=== PATIENT | male | born 1955 | race Caucasian/White ===

== ENCOUNTER 2019-10-20 13:39 | Outpatient (CLI) | payer BC, SELFPAY ==
--- NOTE | ~2019-10-20 | XR_ITS ---
EXAMINATION: XR lg joint inject/asp w image DATE: 10/20/2019 14:23 INDICATION: Right hip primary osteoarthritis. TECHNIQUE: A time-out was performed to verify the patient's name, date of , and procedure to b e performed. The procedure including the risks, benefits, and alternatives was discussed with the pat ient. Risks discussed included bleeding and infection. The patient understood the risks and agreed to proceed. The skin overlying the right hip joint was prepped and draped in usual sterile fashion. A nesthetic was administered with 1% lidocaine subcutaneously. A 22 G needle was advanced under fluoro scopic guidance into the joint. Injection of 1 mL of Omnipaque 240 confirmed intra-articular positio n of the needle. Subsequently, injectate consisting of 3 mL 1% lidocaine and 1 mL 80 mg/mL Depo-Medr ol was instilled. The needle was removed and the entry site was cleaned and dressed. There were no immediate complications. Fluoroscopy exposure time was 0.0 minutes. The total number of images was 1. FINDINGS: Real-time fluoroscopy demonstrates the needle in the right hip joint. Patient's pain prior to procedure:9/10. Patient's pain following the procedure: 0/10. IMPRESSION: 1. Right hip joint injection of local anesthetic and steroid with decrease in the patient's presentin g pain. Reviewed, dictated and finalized at location A. IMPRESSION: 1. Right hip joint injection of local anesthetic and steroid with decrease in t he patient's presenting pain.
== END 2019-10-20 13:40 | disposition home or self-care (01) ==
PROVIDERS: PCP Internal Medicine
DX: M16.11 Unilateral primary osteoarthritis, right hip (principal)
CPT/HCPCS: 20610; 77002; J1040; Q9966

== ENCOUNTER 2020-02-16 13:56 | Outpatient (RCR) | payer BC, SELFPAY ==
--- NOTE | 2020-02-16 14:36 | PTOPEVAL ---
Thank you for referring Abhijeet Patel to [facility].? The patient is scheduled to be seen for therapy? __2__x/week for 8 visits. Please review, sign, date and return this plan of care NONI. I agree with and certify that the following plan of care is medically necessary. Referring Physician Date Admitting Provider: Attending Provider: Donal Corado, MD Referring Provider: *PT Outpatient Evaluation Start: 02/16/20 14:10 Freq: Status: Active Protocol: Document 02/16/20 14:10 CHAZ (Rec: 02/16/20 14:35 CHAZ [id number]) Therapy Assessment Status Assessment Status Assessment Status Evaluation Evaluation Information Problem Diagnosis right CHELSY, anterior approach Onset 01/22/20 Subjective Information Pt. reports that he had hip Query Text:As Reported By Patient/ replacment on 01/22/20. He Family states that he returned home the next day. Immediate pain relief was noted. He states that he still notes weakness after several weeks of HH therapy. He states he is no longer using pain medication. 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 Pain Assessment Timing of Pain Assessment Timing of Pain Assessment Pre-Treatment Pain Scale Pain Scale Used Numeric (1 - 10) Self Report Pain Assessment Right Hip(s) Reported Pain Level 0 Greatest Pain Intensity 0 Pain Score Pain Score 0: Self Report Lower Extremity Range of Motion General Lower Extremity Range of Motion Gross Lower Extremity Range of Motion right hip flexion 95 degree Comments Lower Extremity Muscle Strength Testing General Lower Extremity Strength Gross Lower Extremity Strength right hip flexion 4-/5 left hip flexion 5/5 right hip abduction 3+/5 left hip abduction 4+/5 bilateral knee flexion 5/5 bilateral knee extension 5/5 bilateral ankle dorsiflexion 5 /5 Gait Assessment Gait Assessment Additional Ambulation Comments Pt. ambulates over level surface with slight right trendelenburg demonstrating slightly decreased stance time on the right. General Exercise General Exercises Exercise Description
== END 2020-03-11 10:32 | disposition home or self-care (01) ==
LOC: CHSPT 13:56
PROVIDERS: PCP Internal Medicine; Visit Provider Orthopaedic Surgery
DX: M25.551 Pain in right hip (principal); Z96.641 Presence of right artificial hip joint
CPT/HCPCS: 97110; 97161; 97530

== ENCOUNTER 2020-10-23 01:07 | Emergency (ER) | payer BC, SELFPAY ==
--- NOTE | ~2020-10-23 | CT_ITS ---
EXAMINATION: CT abdomen pelvis wo con DATE: 10/23/2020 02:40 INDICATION: Right flank pain and hematuria TECHNIQUE: Computed tomography (CT) of the abdomen and pelvis was performed without intravenous contr ast. The dose-length product (DLP) was 1676.31 mGy-cm. Automated exposure control and iterative recon struction technique were employed. COMPARISON: 11/03/2011 FINDINGS: Minimal dependent atelectasis is present in the lung bases. The heart size is normal. The l iver, spleen, pancreas, gallbladder and adrenal glands are normal. There is a 5 mm stone of the dista l right ureter which causes mild right hydroureteronephrosis. Nonobstructing stones of the right kidn ey measure up to 5 mm. Nonobstructing stones of the left kidney measure up to 6 mm. There is a 3.6 cm cyst of the left kidney. No pathologically enlarged abdominal or pelvic lymph nodes are identified. There is no free intraperitoneal gas or evidence of bowel obstruction. There are changes of right hip arthroplasty. There is moderate lumbar spondylosis. IMPRESSION: 1. 5 mm stone of the distal right ureter causing mild right hydroureteronephrosis. Bilateral nonobstr ucting nephrolithiasis. Reviewed, dictated and finalized at location A. IMPRESSION: 1. 5 mm stone of the distal right ureter causing mild right hydroureteronephros is. Bilateral nonobstructing nephrolithiasis.
[2020-10-23 01:12] VITALS: BP 150/78; PULSE 90; RESP 20; TEMP 36.6; O2SAT 98
--- NOTE | 2020-10-23 01:14 | ED.MALEGU ---
HPI - Male Genitourinary General Chief complaint: Abdominal Pain Stated complaint: pain Time Seen by Provider: 10/23/20 01:14 Source: patient Mode of arrival: ambulatory Limitations: no limitations History of Present Illness HPI Narrative: 65-year-old man with a history kidney stones comes in today complaining of right flank pain that started approximately 3 hours ago. Patient states the pain waxes and wanes and has had 1 episode of vomiting. He denies fever, chills, diarrhea, chest pain, shortness of breath. he states he had kidney stones of years ago and they would not pass on his own so had to have a procedure. Complaint: other (Flank pain) Onset (ago): hour(s) (3) Duration: other (Waxes and wanes) Location: right flank Severity: severe Quality: sharp Relieving factors: none Exacerbating factors: none Associated symptoms: Reports nausea/vomiting Related Data Allergies Allergy/AdvReac Type Severity Reaction Status Date / Time No Known Allergies Allergy Unverified 06/18/19 13:06 Review of Systems Review of Systems: All systems reviewed & are unremarkable except as noted in HPI and below Constitutional: Constitutional: Denies chills and Denies fever(s) ENT: Denies nasal congestion and Denies sore throat Cardiovascular: Cardiovascular: Denies chest pain and Denies radiating jaw, neck or arm pain Respiratory: Respiratory: Denies cough and Denies dyspnea Gastrointestinal: Gastrointestinal: Reports as per HPI Genitourinary: Genitourinary: Denies hematuria, Denies dysuria and Denies urinary frequency Musculoskeletal: Musculoskeletal: Denies back pain, Denies arthralgias and Denies joint swelling Integumentary/Breasts: Skin/Breast: Denies pruritus, Denies erythema and Denies rash Neurologic: Denies vertigo, Denies dizziness and Denies syncope Hematologic/Lymphatic: Hematologic/Lymphatic: Denies no additional hematologic/lymphatic complaints and Denies easy bleeding Allergic/Immunologic: Allergic/Immunologic: Denies lip swelling and Denies tongue swelling PMFSH Past Medical History Medical History (Updated 10/23/20 @ 03:03 by Parker Ribeiro MD) Urolithiasis Surgical History Surgical History (Updated 10/23/20 @ 01:22 by Parker Ribeiro MD) History of appendectomy History of hip replacement Social History Social History (Updated 10/23/20 @ 01:22 by Parker Ribeiro MD) Smoking status: Current every day smoker Substance use: never Living arrangements: with family Gender identity (if verbalized by the patient): Male Exam Const: General: alert Nutritional Appearance: obese Orientation/consciousness: patient oriented x3 Limitations: altered mental status Other: moderate acute distress. HENMT: Head: normal to inspection Mouth: Yes moist mucous membranes Eyes: Conjunctivae: conjunctivae normal Pupils: Equal, round and reactive pupils present EOM: EOMs intact bilaterally Resp: Effort & Inspection: normal respiratory effort and not labored Auscultation: clear to auscultation bilaterally, no rales, no rhonchi and no wheezes Cardio: Rate: regular rate Rhythm: regular rhythm Heart sounds: no murmurs GI: GI Palp: Yes Soft to palpation, No Tenderness to palpation present (GI) and No Guarding due to palpation present (GI) Skin: General skin exam: normal color, no jaundice and no pallor Rashes: no rashes Neuro: General: patient oriented x3, moves all extremities, no meningeal signs and no focal motor deficits Cranial nerves: Yes Nystagmus not present Speech: normal speech Gait exam (Neuro): Normal gait present Extrem: General: normal to inspection and no clubbing, cyanosis or edema Psych: Appearance: grossly normal and well kempt Mental Status: mental status grossly normal Affect: normal affect Attitude: cooperative Thought content: Yes Normal thought content present Course Vital Signs Vital signs: Vital Signs Temperature 36.6 C 10/23/20 01:12 Pulse Rate 90
[2020-10-23] MEDS: ONDANSETRON INJ 4 MG/2 ML VIAL IV PUSH (01:16)
[2020-10-23] MEDS: SODIUM CHLORIDE 0.9% IV 1,000 ML 999 ML IV CONT ×2 (01:17→02:07)
[2020-10-23] MEDS: HYDROmorphone HCL INJ (*CRX) 2 MG/ML VIAL 0.5 MG IV PUSH (01:17)
[2020-10-23 01:38] LABS: Basophils Absolute Auto 0.03 K/mm3 (0.00-0.10); Basophils Percent Auto 0.4 % (0.0-1.0); Eosinophils Absolute Auto 0.12 K/mm3 (0.02-0.50); Eosinophils Percent Auto 1.7 % (1.0-6.0); Hematocrit 42.2 % (40.0-54.0); Hemoglobin 14.2 g/dL (14.0-18.0); Immature Granulocyte Absolute 0.02 K/mm3 (0.00-0.00); Immature Granulocyte Percent A 0.3 % (0.0-0.0); Lymphocytes Absolute Auto 2.32 K/mm3 (1.10-4.50); Lymphocytes Percent Auto 31.9 % (18.0-42.0); Mean Corpuscular HGB Conc 33.6 g/dL (32.0-36.0); Mean Corpuscular Hemoglobin 30.7 pg (27.0-31.0); Mean Corpuscular Volume 91.3 fL (78.0-102.0); Mean Platelet Volume 9.3 fl (8.7-11.0); Monocytes Absolute Auto 0.69 K/mm3 (0.10-0.90); Monocytes Percent Auto 9.5 % (2.0-11.0); Neutrophils Absolute Auto 4.1 K/mm3 (1.7-7.2); Neutrophils Percent Auto 56.2 % (50.0-70.0); Platelet Count Result 184 K/mm3 (150-420); Red Blood Count 4.62 M/mm3 (4.70-6.10); Red Cell Distribution Width 13.3 % (11.6-14.4); White Blood Count 7.3 K/mm3 (4.8-10.8)
[2020-10-23 01:46] LABS: Alanine Aminotransferase 24 U/L (16-63); Albumin Level 3.7 g/dL (3.4-5.0); Alkaline Phosphatase 75 U/L (46-116); Anion Gap 12 mmol/L (8-16); Aspartate Amino Transferase 14 U/L (15-37); Bilirubin,Total 0.4 mg/dL (0.00-1.00); Blood Urea Nitrogen 23 mg/dL (7-18); Calcium 8.8 mg/dL (8.5-10.1); Carbon Dioxide 26 mmol/L (21-32); Chloride 104 mmol/L (98-108); Estimated CRCL calculation 70 ml/min; Estimated Glomerular Filt Rate > 60; Glucose 124 mg/dL (70-99); Osmolality Calculated 298 mOsm/kg (285-295); Potassium 3.2 mmol/L (3.5-5.1); Sodium 142 mmol/L (136-145); Total Protein 6.6 g/dL (6.4-8.2)
[2020-10-23 01:47] LABS: Lipase 117 U/L (73-393)
[2020-10-23 02:05] LABS: Add Urine Microscopic? YES; Bilirubin Urine Negative (Negative); Blood Urine 3+ (Negative); Color Urine Yellow (Yellow); Glucose Urine UA Negative (Negative); Ketones Urine Negative (Negative); Leukocyte Esterase Ur Negative LEU/UL (Negative); Nitrate Urine Negative (Negative); Protein Urine 1+ (Negative); Specific Grav Ur >= 1.030 (1.010-1.020); Urobilinogen Urine 0.2 mg/dL (0.2-1.0); pH Urine 5.5 (5.0-8.0)
[2020-10-23] MEDS: KETOROLAC 30 MG/ML VIAL (*BKC) IV PUSH (02:06)
[2020-10-23 02:07] VITALS: BP 140/70; PULSE 80; RESP 20
[2020-10-23] MEDS: POTASSIUM CHLORIDE 20 MEQ TABLET 40 MEQ PO (02:07)
[2020-10-23 02:12] LABS: Appearance Urine Cloudy (Clear); Bacteria Urine Trace /hpf; Mucus Urine Heavy /lpf; RBC Urine >75 /hpf (0-2); Squamous Epithelial Cell Urine None seen /hpf (Few); WBC Urine None seen /hpf (0-3)
[2020-10-23 03:28] VITALS: BP 138/88; PULSE 80; RESP 18; TEMP 36.8; O2SAT 98
--- NOTE | 2020-10-23 03:58 | PC.NURSE ---
EDUCATED ON MEDICATIONS, AND URINE STRAIN & STONE COLLECTION
== END 2020-10-23 03:58 | disposition home or self-care (01) ==
PROVIDERS: Emergency Provider Emergency Medicine
DX: N28.1 Cyst of kidney, acquired (principal); N13.2 Hydronephrosis with renal and ureteral calculous obstruction
CPT/HCPCS: 36415; 74176; 80053; 81001; 83690; 85025; 87086; 87088; 96361; 96374; 96375; 99283; 99284; A9270; J1170; J1885; J2405; J7030

== ENCOUNTER 2020-12-31 07:20 | Outpatient (CLI) | payer BC, SELFPAY ==
[2020-12-31 07:39] LABS: Basophils Absolute Auto 0.04 K/mm3 (0.00-0.10); Basophils Percent Auto 0.7 % (0.0-1.0); Eosinophils Absolute Auto 0.18 K/mm3 (0.02-0.50); Eosinophils Percent Auto 3.1 % (1.0-6.0); Hematocrit 43.6 % (40.0-54.0); Hemoglobin 14.3 g/dL (14.0-18.0); Immature Granulocyte Absolute 0.01 K/mm3 (0.00-0.00); Immature Granulocyte Percent A 0.2 % (0.0-0.0); Lymphocytes Absolute Auto 1.72 K/mm3 (1.10-4.50); Lymphocytes Percent Auto 29.6 % (18.0-42.0); Mean Corpuscular HGB Conc 32.8 g/dL (32.0-36.0); Mean Corpuscular Hemoglobin 30.6 pg (27.0-31.0); Mean Corpuscular Volume 93.2 fL (78.0-102.0); Mean Platelet Volume 8.9 fl (8.7-11.0); Monocytes Absolute Auto 0.65 K/mm3 (0.10-0.90); Monocytes Percent Auto 11.2 % (2.0-11.0); Neutrophils Absolute Auto 3.2 K/mm3 (1.7-7.2); Neutrophils Percent Auto 55.2 % (50.0-70.0); Platelet Count Result 195 K/mm3 (150-420); Red Blood Count 4.68 M/mm3 (4.70-6.10); Red Cell Distribution Width 13.5 % (11.6-14.4); White Blood Count 5.8 K/mm3 (4.8-10.8)
[2020-12-31 07:43] LABS: Add Urine Microscopic? YES; Appearance Urine Clear (Clear); Bilirubin Urine Negative (Negative); Blood Urine 1+ (Negative); Color Urine Yellow (Yellow); Glucose Urine UA Negative (Negative); Ketones Urine Negative (Negative); Leukocyte Esterase Ur Negative (Negative); Nitrate Urine Negative (Negative); Protein Urine Negative (Negative); Specific Grav Ur >= 1.030 (1.010-1.020); Urobilinogen Urine 0.2 mg/dL (0.2-1.0)
[2020-12-31 08:01] LABS: RBC Urine 0-2 /hpf (0-2); WBC Urine None seen /hpf (0-3)
[2020-12-31 08:02] LABS: Bacteria Urine Trace /hpf; Mucus Urine Moderate /lpf
[2020-12-31 10:26] LABS: Alanine Aminotransferase 37 U/L (16-63); Albumin Level 3.9 g/dL (3.4-5.0); Alkaline Phosphatase 79 U/L (46-116); Anion Gap 11 mmol/L (8-16); Aspartate Amino Transferase 19 U/L (15-37); Bilirubin,Total 0.3 mg/dL (0.00-1.00); Blood Urea Nitrogen 16 mg/dL (7-18); Calcium 8.5 mg/dL (8.5-10.1); Carbon Dioxide 26 mmol/L (21-32); Chloride 109 mmol/L (98-108); Cholesterol 138 mg/dL (0-200); Estimated Glomerular Filt Rate > 60; Glucose 102 mg/dL (70-99); HDL Direct 37 mg/dL (40-60); LDL Cholesterol Calculated 92 mg/dL (<130); Osmolality Calculated 303 mOsm/kg (285-295); Sodium 146 mmol/L (136-145); Total Protein 6.6 g/dL (6.4-8.2); Triglycerides 47 mg/dL (0-150); Uric Acid 5.4 mg/dL (3.5-7.2)
== END 2020-12-31 07:21 | disposition home or self-care (01) ==
LOC: CHSLAB 07:23
PROVIDERS: PCP Internal Medicine; Visit Provider Internal Medicine
DX: Z00.00 Encounter for general adult medical examination without abnormal findings (principal); I10 Essential (primary) hypertension; N20.0 Calculus of kidney; Z12.5 Encounter for screening for malignant neoplasm of prostate
CPT/HCPCS: 36415; 80053; 80061; 81001; 84153; 84550; 85025; G0103

== ENCOUNTER 2023-02-21 16:50 | Emergency (ER) | payer OTHER, MEDICARE, BC, SELFPAY ==
[2023-02-21 16:53] VITALS: BP 124/85; PULSE 73; RESP 20; TEMP 36.7; O2SAT 96
--- NOTE | 2023-02-21 16:59 | ED.WOUNDLAC ---
HPI - Wound/Laceration General Chief Complaint: Wound/Laceration Stated Complaint: Laceration on head Time Seen by Provider: 02/21/23 16:59 Source: patient Mode of arrival: ambulatory Limitations: no limitations History of Present Illness HPI narrative: 67-year-old male with a history of hypertension, BPH presents to the ER -- after a scalp laceration measuring 3 cm. The patient lacerated his scalp with a sharp object while trying to get up into his tractor. No other injuries noted. No head injury. No loss of consciousness/vomiting. Patient is up-to-date on his tetanus vaccination. Onset (ago): hour(s) ( 4 hours ago) Location: scalp Place: work Patient tetanus UTD: Yes Context: accidental Associated symptoms: none Related Data Home Medications Medication Instructions Recorded Confirmed amlodipine 5 mg tablet 5 mg PO DAILY 02/21/23 02/21/23 Allergies Allergy/AdvReac Type Severity Reaction Status Date / Time No Known Allergies Allergy Unverified 02/21/23 17:02 Review of Systems Review of Systems: All systems reviewed & are unremarkable except as noted in HPI and below Constitutional: Constitutional: Reports as per HPI and Reports no additional constitutional complaints Eyes: Eyes: Reports as per HPI and Reports no additional eye complaints ENT: Reports system reviewed and no additional complaints, except as documented and Reports as per HPI Cardiovascular: Cardiovascular: Reports as per HPI and Reports no additional cardiovascular complaints Respiratory: Respiratory: Reports as per HPI and Reports no additional respiratory complaints Gastrointestinal: Gastrointestinal: Reports as per HPI and Reports no additional gastrointestinal complaints Genitourinary: Genitourinary: Reports no additional male genitourinary complaints and Reports as per HPI Musculoskeletal: Musculoskeletal: Reports no additional musculoskeletal complaints and Reports as per HPI Integumentary/Breasts: Skin/Breast: Reports system reviewed and no additional complaints, except as docu Comments: 3 cm scalp laceration on his occiput. Neurologic: Reports system reviewed and no additional complaints, except as documented and Reports as per HPI Psychiatric: Psychiatric: Reports no additional psychiatric complaints and Reports as per HPI Endocrine: Endocrine: Reports no additional endocrine complaints and Reports as per HPI Hematologic/Lymphatic: Hematologic/Lymphatic: Reports no additional hematologic/lymphatic complaints and Reports as per HPI Allergic/Immunologic: Allergic/Immunologic: Reports no additional allergic/immunologic complaints and Reports as per HPI [facility] Past Medical History Medical History Urolithiasis Surgical History Surgical History History of appendectomy History of hip replacement Social History Social History Smoking status: Current every day smoker Substance use: never Living arrangements: with family Gender identity (if verbalized by the patient): Male Exam Const: General: healthy appearing and no acute distress Nutritional Appearance: well nourished Orientation/consciousness: patient oriented x3 Limitations: no limitations HENMT: Head: normal to inspection Ears: external ears normal Face/Nose/Sinus: Normal external nose present Face and sinus: normal facial exam Mouth: Yes Normal oral and palatal mucosa present Throat: posterior oropharynx normal Eyes: Conjunctivae: conjunctivae normal Pupils: Equal, round and reactive pupils present EOM: EOMs intact bilaterally Direct Ophthalmoscopy: no photophobia Neck: Neck: normal visual inspection and no lymphadenopathy Chest: Chest palpation & inspection: normal inspection of the chest Resp: Effort & Inspection: normal respiratory effort Auscultation: clear to auscult
[2023-02-21 17:20] VITALS: BP 128/80; PULSE 76; RESP 20; O2SAT 98
--- NOTE | 2023-02-21 17:41 | PC.NURSE ---
On 02/21/23, the student, [wu amaya ], provided care and completed [facility] documentation on this patient. I have reviewed the student's documentation and agree with the findings.
== END 2023-02-21 17:25 | disposition home or self-care (01) ==
PROVIDERS: Emergency Provider Internal Medicine Critical Care Medicine; PCP Internal Medicine
DX: S01.01XA Laceration without foreign body of scalp, initial encounter (principal); I10 Essential (primary) hypertension; F17.200 Nicotine dependence, unspecified, uncomplicated; Z79.899 Other long term (current) drug therapy; W26.8XXA Contact with other sharp object(s), not elsewhere classified, initial encounter; Y92.818 Other transport vehicle as the place of occurrence of the external cause
CPT/HCPCS: 12002; 99282

== ENCOUNTER 2023-05-21 16:25 | Outpatient (CLI) | payer MEDICARE, BC, SELFPAY ==
--- NOTE | ~2023-05-21 | XR_ITS ---
XR heel LT min 2V DATE: 05/21/2023 16:46 INDICATION: Left heel pain for one month TECHNIQUE: Axial and lateral views COMPARISON: None FINDINGS: There is prominent plantar calcaneal enthesopathy. No associated erosive change or periost eal reaction. No fracture or bone destruction. IMPRESSION: Prominent plantar calcaneal enthesopathy Reviewed, dictated and finalized at location B. E INFECTION CONTROL
== END 2023-05-21 16:26 | disposition home or self-care (01) ==
LOC: CHSIMG 16:29
PROVIDERS: PCP Internal Medicine; Visit Provider Internal Medicine
DX: M79.672 Pain in left foot (principal); M77.32 Calcaneal spur, left foot
CPT/HCPCS: 73650

== ENCOUNTER 2023-09-15 04:57 | Emergency (ER) | payer MEDICARE, BC, SELFPAY ==
--- NOTE | ~2023-09-15 | CT_ITS ---
EXAMINATION: CT abdomen pelvis w con DATE: 09/15/2023 06:09 INDICATION: Epigastric and central abdominal pain, nausea and vomiting for 5 hours TECHNIQUE: Computed tomography (CT) of the abdomen and pelvis was performed with 100 CC Omnipaque 350 intravenous contrast. Automated exposure control and iterative reconstruction technique were employe d. Exam dose: 1618.38 mGy-cm total exam DLP. COMPARISON: 10/23/2020 CT abdomen pelvis FINDINGS: The lung bases are clear of consolidation heart size is within normal range. No pericardial or pleural effusion. There multiple gallstones. No gallbladder wall thickening or pericholecystic fluid or fat stranding. No bile duct or pancreatic duct dilatation. No hepatic or splenic or adrenal space-occupying mass lesion. No pancreatic mass lesion or calcification. Occasional left renal cysts, the largest approximate 4.5 cm dimension. There are several bilateral renal nonobstructing calculi, the largest approximately 6.9 mm. On the ri ght, 6.5 mm on the left. There is right pelviectasis and mild right hydronephrosis, possibly due to right ureteropelvic dispro portion. No ureteral calculi or left hydroureteronephrosis. Normal caliber of the abdominal aorta. No intraperitoneal or retroperitoneal or pelvic mass lesion or adenopathy or ascites. No bowel obstruction or bowel wall thickening, pneumatosis or intraperitoneal free air is detected. Small bilateral fat-containing inguinal hernias. Status post right total hip arthroplasty. Osteoarthritic change left hip. IMPRESSION: Bilateral nonobstructive nephrolithiasis Right pelviectasis and mild hydronephrosis, possibly secondary to right ureteropelvic disproportion Left renal cysts Cholelithiasis Reviewed, dictated and finalized at Location A. Reviewed, dictated and finalized at location A. IMPRESSION: Bilateral nonobstructive nephrolithiasis Right pelviectasis and mild hydronephrosis, possibly secondary to right uretero pelvic disproportion Left renal cysts Cholelithiasis
--- NOTE | ~2023-09-15 | XR_ITS ---
XR chest 1V portable DATE: 09/15/2023 05:21 INDICATION: Epigastric pain TECHNIQUE: Portable upright AP chest on 09/15/2023 at 0527 hours COMPARISON: 11/22/2016 2 view chest FINDINGS: Heart size is within normal limits. No hilar or mediastinal enlargement. No pulmonary infil trate or consolidation, pleural effusion or pulmonary vascular congestion or pneumothorax is noted. IMPRESSION: No active cardiopulmonary disease Reviewed, dictated and finalized at location A.
[2023-09-15 05:00] VITALS: BP 170/85; PULSE 73; RESP 20; TEMP 36; O2SAT 96
--- NOTE | 2023-09-15 05:11 | ECG_ITS ---
SEE SCANNED COPY FOR CONFIRMED REPORT MTDD
--- NOTE | 2023-09-15 05:12 | ED.GENADULT ---
HPI - General Adult General Chief complaint: Abdominal Pain Stated complaint: abdominal pain Time Seen by Provider: 09/15/23 05:03 History of Present Illness HPI narrative: This is a 68-year-old male presenting with abdominal pain. Patient says that 1:00 a.m. he was woken from sleep by severe pain in the center of his abdomen. It is nonradiating, 10 out 10 intensity and constant. He experience this 1 month ago but it resolved on his own any not seek medical care. He was the pain is slightly improved with sitting up. No exacerbating factors. It is associated with nausea and vomiting. Last bowel movement was 3 hours prior to arrival and was normal. Patient denies fevers chills chest pain difficulty breathing or urinary symptoms. Related Data Home Medications Medication Instructions Recorded Confirmed amlodipine 5 mg tablet 5 mg PO DAILY 02/21/23 09/15/23 Allergies Allergy/AdvReac Type Severity Reaction Status Date / Time No Known Allergies Allergy Unverified 05/30/23 08:40 [facility] Past Medical History Medical History (Updated 09/16/23 @ 00:03 by Patrice Mosley) Flat foot [pes planus] (acquired), left foot Plantar fasciitis, left Urolithiasis Surgical History Surgical History History of ankle surgery (~1984) right History of appendectomy (~1966) History of hip replacement (~2019) Social History Social History Smoking status: Never smoker Alcohol intake: current Drinks per week: 4 Substance use: never Living arrangements: with family Occupation/Education: occupation 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 Head: atraumatic. EYES: EOMI, NOSE: Atraumatic NECK: Trachea midline RESPIRATORY: No increased rate of breathing CTAB CARDIOVASCULAR: RRR, ABDOMINAL: Abdomen is distended but normal for the patient, no tenderness guarding or rebound, No CVA tenderness MUSCULOSKELETAl: No obvious deformities NEURO: Alert. Moving 4/4 extremities SKIN:: Warm, dry. Normal color PSYCHIATRIC: Normal affect Course Vital Signs Vital signs: Vital Signs Temperature 96.8 F L 09/15/23 05:00 Pulse Rate 73 09/15/23 05:00 Respiratory Rate 20 09/15/23 05:00 Blood Pressure 170/85 H 09/15/23 05:00 Pulse Oximetry 96 09/15/23 05:00 Oxygen Delivery Room Air 09/15/23 05:00 Temperature 96.8 F L 09/15/23 05:00 Pulse Rate 64 09/15/23 07:56 Respiratory Rate 20 09/15/23 07:56 Blood Pressure 139/79 09/15/23 07:56 Pulse Oximetry 99 09/15/23 07:56 Oxygen Delivery Room Air 09/15/23 07:56 Medical Decision Making MDM Narrative Medical decision making narrative: -Course: 68-year-old male presenting with epigastric abdominal pain. Laboratory studies within normal limits. EKG and chest x-ray unremarkable. I am at the end of my shift. the official read on the chest x-ray and CT abdomen pelvis are still pending. If normal patient will be discharged on a course of pepcid w/ pcp f/u and return precautions. 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 no tobacco/drugs -Independent interpretation of studies: labs reviewed within normal limits chest x-ray unremarkable Independent EKG interpretation: Rhythm [sinus], Rate [58], [place] -[normal], [place] -[normal], QRS [narrow], QTC [normal], T waves -[negative for concerning inversions], ST Segments - [Negative for concerning elevations] Final interpretations: sinus bradycardia -Interventions: 1L normal saline, Dilaudid Pepcid Zofra
[2023-09-15] MEDS: HYDROmorphone HCL INJ (*CRX) 2 MG/ML VIAL 0.5 MG IV PUSH (05:20)
[2023-09-15] MEDS: FAMOTIDINE 20 MG/2 ML VIAL IV PUSH (05:21)
[2023-09-15] MEDS: MAG HYDROX/AL HYDROX/SIMETH 30 ML UDC PO (05:21)
[2023-09-15] MEDS: ONDANSETRON INJ 4 MG/2 ML VIAL IV PUSH (05:21)
[2023-09-15] MEDS: SODIUM CHLORIDE 0.9% IV 1,000 ML 999 ML IV CONT (05:24)
[2023-09-15 05:25] LABS: Basophils Absolute Auto 0.03 K/mm3 (0.00-0.10); Basophils Percent Auto 0.5 % (0.0-1.0); Eosinophils Absolute Auto 0.07 K/mm3 (0.02-0.50); Eosinophils Percent Auto 1.1 % (1.0-6.0); Hematocrit 42.9 % (37.0-46.0); Immature Granulocyte Absolute 0.02 K/mm3 (0.00-0.00); Immature Granulocyte Percent A 0.3 % (0.0-0.0); Lymphocytes Absolute Auto 1.31 K/mm3 (1.10-4.50); Lymphocytes Percent Auto 20.4 % (18.0-42.0); Mean Corpuscular HGB Conc 32.6 g/dL (32-36); Mean Corpuscular Hemoglobin 30.1 pg (27.0-31.0); Mean Corpuscular Volume 92.3 fL (78.0-102.0); Mean Platelet Volume 8.6 fl (8.7-11.0); Monocytes Absolute Auto 0.55 K/mm3 (0.10-0.90); Monocytes Percent Auto 8.6 % (2.0-11.0); Neutrophils Absolute Auto 4.43 K/mm3 (1.70-7.20); Neutrophils Percent Auto 69.1 % (50.0-70.0); Platelet Count Result 185 K/mm3 (150-420); Red Blood Count 4.65 M/mm3 (4.70-6.10); Red Cell Distribution Width 13.2 % (11.6-14.4); White Blood Count 6.4 K/mm3 (4.8-10.8)
[2023-09-15 05:33] VITALS: BP 116/64; PULSE 65; RESP 18; O2SAT 98
[2023-09-15 05:40] LABS: INR 0.9; Partial Thromboplastin Time 26.2 Sec (23.9-30.70)
[2023-09-15 05:44] LABS: Lactic Acid Reflex 1.1 mmol/L (0.4-2.0)
[2023-09-15 05:45] LABS: Alanine Aminotransferase 28 U/L (16-63); Albumin Level 3.6 g/dL (3.4-5.0); Alkaline Phosphatase 70 U/L (46-116); Anion Gap 9 mmol/L (4-12); Aspartate Amino Transferase 18 U/L (15-37); Bilirubin,Total 0.3 mg/dL (0.00-1.00); Blood Urea Nitrogen 25 mg/dL (7-18); Calcium 8.8 mg/dL (8.5-10.1); Carbon Dioxide 27 mmol/L (21-32); Chloride 105 mmol/L (98-108); Estimated CRCL calculation 100 ml/min; Estimated Glomerular Filt Rate > 60; Glucose 124 mg/dL (70-99); Lipase 33 U/L (16-77); Osmolality Calculated 297 mOsm/kg (285-295); Potassium 3.8 mmol/L (3.5-5.1); Sodium 141 mmol/L (136-145); Total Protein 6.6 g/dL (6.4-8.2); Troponin I 13.7 ng/L (0.00-60.4)
[2023-09-15 07:56] VITALS: BP 139/79; PULSE 64; RESP 20; O2SAT 99
== END 2023-09-15 07:59 | disposition home or self-care (01) ==
PROVIDERS: Emergency Medicine; Emergency Provider Family Medicine; PCP Internal Medicine
DX: K29.70 Gastritis, unspecified, without bleeding (principal); K52.9 Noninfective gastroenteritis and colitis, unspecified
CPT/HCPCS: 36415; 71045; 74177; 80053; 83605; 83690; 84484; 85025; 85610; 85730; 93005; 96361; 96374; 96375; 99284; A9270; J1170; J2405; J7030; Q9967

== ENCOUNTER 2023-09-20 08:13 | Outpatient (CLI) | payer MEDICARE, BC, SELFPAY ==
--- NOTE | ~2023-09-20 | NM_ITS ---
EXAMINATION: NM hepatobiliary wo pharm DATE: 09/20/2023 10:21 INDICATION: Chronic cholecystitis COMPARISON: CT dated 09/15/2023 TECHNIQUE: 5.3 mCi Tc-99m mebrofenin (Choletec) was administered intravenously. Scintigraphic images of the abdomen were obtained for one hour. At the 1 hour time point, the patient drank 8 oz Ensure, and imaging was continued for 90 minutes. Gallbladder ejection fraction was calculated by the technol ogist. FINDINGS: There is normal clearance of radiotracer from the blood pool. There is homogeneous tracer u ptake by the liver. Activity progresses to the bowel with activity first seen within the duodenum on the 5-10 minute images. There is progressive uptake and excretion of activity with accumulation in t he small bowel with a remaining 90 minutes with negligible residual activity in the liver at 90 minut es. No evident gallbladder activity. IMPRESSION: 1. Normal uptake and excretion of activity into the bowel by the liver with no evident gallbladder a ctivity through 90 minutes of imaging which would be consistent with acute cholecystitis. False posit salazar can also be seen in setting of chronic cholecystitis, prolonged fasting or recent meal within 4 hours of imaging. Correlate for Lyles sign. Reviewed, dictated and finalized at location A. IMPRESSION: 1. Normal uptake and excretion of activity into the bowel by the liver with no evident gallbladder activity through 90 minutes of imaging which would be cons istent with acute cholecystitis. False positives can also be seen in setting of chronic cholecystitis, prolonged fasting or recent meal within 4 hours of imag ing. Correlate for Lyles sign.
== END 2023-09-20 08:14 | disposition home or self-care (01) ==
LOC: CHSIMG 08:16
PROVIDERS: PCP Internal Medicine; Visit Provider Internal Medicine
DX: K81.1 Chronic cholecystitis (principal)
CPT/HCPCS: 78226; A9537

== ENCOUNTER 2023-10-30 15:18 | Outpatient (CLI) | payer MEDICARE, BC, SELFPAY ==
[2023-10-30 16:06] LABS: Amylase 60 U/L (30-110)
== END 2023-10-30 15:19 | disposition home or self-care (01) ==
LOC: ANHSURGERY 15:23
PROVIDERS: PCP Internal Medicine; Visit Provider Surgery
DX: Z01.818 Encounter for other preprocedural examination (principal); K80.20 Calculus of gallbladder without cholecystitis without obstruction
CPT/HCPCS: 36415; 82150

== ENCOUNTER 2023-11-02 00:55 | Day surgery (SDC) | payer MEDICARE, BC, SELFPAY ==
--- NOTE | 2023-10-22 15:08 | PC.NURSE ---
Report to the Outpatient Waiting Room, entrance under the green pavilion located off [facility], at time _12:30 PM on date __11/02/23____. Planned Procedure Time: _2:30 PM . Time changes happen often and if your time is changed the preop area will call you the afternoon before. - You and your visitor will be asked to self-screen and do not enter if you have any COVID symptoms. - A mask is optional within the hospital at this time. Patients may have clear liquids (water, carbonated beverages, clear teas, apple juice) until 3 hours prior to surgery( 11:30 AM) with a maximum of 20 ounces. - No food from midnight until time of surgery - Infants may have breast milk until 4 hours before surgery, infant formula 6 hours prior to surgery. - Children will be allowed to drink immediately following surgery. If applicable, please bring a bottle or sippy cup to assist with drinking. Juice, water, soda, and popsicles are readily available. For infants on formula, please bring formula the day of surgery. Pacifiers are allowed. Take the following medications with a SIP of water the morning of surgery: ____AMLODIPINE DO NOT STOP ANY OF YOUR OTHER PRESCRIPTION MEDICATIONS PRIOR TO SURGERY ?EXCEPT THE FOLLOWING Medications to discontinue per physician NONE Please no make-up, nail south korean, hairspray, perfume, deodorant, or body powder the day of surgery. No jewelry (including any body piercings) or valuables the day of surgery, leave them at home. Please take a shower or bath the night before, or the morning of, surgery with an antibacterial soap. Wear comfortable, loose fitting clothing. Children are encouraged to wear pajamas. - Jewelry must be removed prior to entering the operating room. Rings and piercings that are not removed may be cut off. - The hospital will not accept responsibility for valuables. - Please leave all valuables, including medications, at home the day of surgery. If you are going home after surgery, a licensed professional driver must drive you home. - NO public transportation without another adult if you receive anesthesia. - We recommend that an adult stay with you for 24 hours following discharge. - We also recommend that you do not drive, make important decision, drink alcoholic beverages, or take any drugs that were not prescribed by your health care provider for at least 24 hours after your discharge time. Follow any additional instructions given to you from your surgeon. If you or anyone in your household have experienced Covid symptoms in the past week, please notify your surgeon or the nurse liaison at the phone number below for possible testing. Telephone instructions given to __PATIENT and asked if any additional questions and then verbalized understanding. Patient advised to call surgeon office or pre surgery nurse liaison [phone] if any additional questions.
[2023-10-22 15:19] VITALS: BMI 41.1
[2023-11-02] VITALS (9 sets, daily range): BP systolic 126–166; BP diastolic 46–80; PULSE 52–64; RESP 14–18; TEMP 36.4–37.2; O2SAT 90–100
[2023-11-02] MEDS: ACETAMINOPHEN 500 MG TABLET 1000 MG PO (13:00)
[2023-11-02] MEDS: LACTATED RINGERS 1,000 ML 30 ML IV CONT ×2 (13:00→14:42)
[2023-11-02] MEDS: KETOROLAC 15 MG/ML VIAL (*BKC) IV PUSH (13:00)
--- NOTE | 2023-11-02 13:12 | WPDHPUPDATE1 ---
History and Physical Update Update Date/Time: 11/02/23 13:12 History and Physical has been reviewed, including an updated exam of the patient. There are NO changes in the patient's condition. Risks, benefits, and alternatives have been discussed and questions answered. Patient agrees to proceed with procedure.
--- NOTE | 2023-11-02 13:32 | WPDANESEPPF ---
Anes - Initial Pre Proc Eval Procedure: Operation Date: 11/02/23 14:30 Proposed Procedures p Laparoscopic Cholecystectomy, Possible Open - Eliseo Joe DO Date/Time: 11/02/23 13:32 Surgeon: Eliseo Joe DO Pre Op Diagnosis: symptomatic cholelithiasis Patient Data Age: 68 Gender: M Height: 1.8 m Weight: 133.85 kg Allergies Allergy/AdvReac Type Severity Reaction Status Date / Time No Known Allergies Allergy Verified 10/22/23 15:01 Home Medications Medication Instructions Recorded Confirmed Type amlodipine 5 mg tablet 5 mg PO DAILY 02/21/23 10/22/23 History Patient hx anesthesia problems: none Family hx anesthesia problems: none Results Review: All pre-operative results and documents have been reviewed as part of the pre-operative evaluation. [facility] Past Medical History Medical History (Updated 10/18/23 @ 09:40 by Pretty Funk) Flat foot [pes planus] (acquired), left foot Plantar fasciitis, left Urolithiasis Surgical History Surgical History History of ankle surgery (~1984) right History of appendectomy (~1966) History of hip replacement (~2019) Family History Family History Other Diabetes mellitus Social History Social History Smoking status: Never smoker Alcohol intake: current Drinks per week: 5 Substance use: never Do You Feel Safe in your Home?: Yes Lack of Transportation: No Lack of Food: Never True Current Housing: I Have Housing Concerned About Future Housing: No Difficulty Paying Gas/Electric Bills: No Difficulty Paying for Meds: No Currently Unemployed: No Education: Trade/Vocational Certificate Difficulty w/ Childcare or Family Care: No Living arrangements: with family Occupation/Education: occupation 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 HTN, MEGHAN on CPAP. Informed Consent: The patient's anesthetic plan and its attendant risks and benefits were discussed with the patient/family/POA. Questions were solicited and answers provided to the satisfaction of the patient/family/POA.
[2023-11-02] MEDS: ceFAZolin 3 GM/D5W 100 ML 100 ML IVPB (13:49)
[2023-11-02] MEDS: BUPIVACAINE/EPINEPHRINE 0.5% 10 ML VIAL 30 ML INFILTRATE (14:08)
--- NOTE | 2023-11-02 14:40 | W.PM.PROC2 ---
Procedure Note - Detailed Date of Procedure 11/02/23 Pre-op Diagnosis symptomatic cholelithiasis Post-op Diagnosis Same Procedure Performed Laparoscopic Cholecystectomy Surgeon Eliseo Joe, DO Anesthesia General and Local (0.5% bupivacaine) Indications This is a 68-year-old man who presented with multiple episodes of upper abdominal pain over the past 2 months. He had been to the emergency department with the symptoms and a CT showed evidence of cholelithiasis but no other significant abnormalities. He then followed up with his PCP and underwent HIDA scan which showed no filling of the gallbladder suggestive of acute or chronic cholecystitis. Discussions were made with the patient about treatment options and decision was made to proceed with laparoscopic cholecystectomy, possible open. Findings Laparoscopic cholecystectomy was performed. There were a few mild pericholecystic adhesions, but no signs of acute inflammation. The cystic duct appeared normal in size. No other abnormalities were noted. There was possibly a stone right at the neck of the gallbladder. The gallbladder was removed and sent to the lab for pathology. Description of Procedure Procedure as well as risks, benefits, and alternatives were discussed with patient. Written consent was obtained and placed in chart prior to procedure. The patient was brought back to surgical suite. Patient was placed in supine position on operating table. Time-out was done to confirm patient and procedure. Patient was then intubated by the anesthesia department. Abdomen was prepped and draped in sterile fashion using chlorhexidine prep. 0.5% bupivacaine with epinephrine was infiltrated at each site of incision. A 5 millimeter incision was made near the umbilicus, and a 5 millimeter Optiview trocar was advanced through the abdominal layers under direct visualization. Once inside the abdominal cavity, carbon dioxide was insufflated to create a pneumoperitoneum. The camera was inserted and the abdomen was inspected. No immediate abnormalities were identified. The patient was placed in reverse Trendelenburg position and rotated slightly to the left. An 11 millimeter incision was made in the subxiphoid region, and an 11 millimeter trocar was inserted under direct visualization. Two 5 millimeter incisions were made in the right upper quadrant, and two 5 millimeter trocars were inserted under direct visualization. The gallbladder was identified and grasped at the fundus and retracted superiorly. It was then grasped at the infundibulum retracted laterally. Careful dissection around the neck of the gallbladder was performed using blunt dissection with a [place] grasper and hook electrocautery. The cystic duct was identified, and a window was created behind it. The cystic artery was also identified and a window was created behind it. The critical view of safety was identified, visualizing the cystic duct running directly into the neck of the gallbladder, and the cystic artery running directly into the wall of the gallbladder. A 5 millimeter clip electrical foreman was then used to place 2 clips proximally and 1 clip distally on both the cystic duct and cystic artery. They were then both transected using endoscopic scissors. Once safely away from the paolo hepatitis, the gallbladder was dissected free from the liver bed using hook electrocautery. Hemostasis was achieved along the way. The gallbladder was removed completely and then removed through the subxiphoid port. The liver bed was then inspected. Hemostasis appeared adequate, and our clips appeared secure. The area was gently irrigated with sterile saline. No other abnormalities were seen. The patient was flattened out in bed, and 1 final inspection was made around the abdominal cavity. The subxiphoid port was removed, and a Hardeep Kassie cone was used to approximate the fascia with an 0-Vicryl simple interrupted suture. The remaining ports were then
[2023-11-02] MEDS: fentaNYL CITRATE INJ (*CRX) 100 MCG/2 ML VIAL 25 MCG IV PUSH ×4 (15:10→16:00)
[2023-11-02] MEDS: oxyCODONE HCL (*CRX) 5 MG TAB IR PO (16:33)
== END 2023-11-02 17:00 | disposition home or self-care (01) ==
PROVIDERS: PCP Internal Medicine; Visit Provider Surgery
PROC: 0FT44ZZ Resection of Gallbladder, Percutaneous Endoscopic Approach (ICD-10-PCS; CPT 47562; principal; 2023-11-02 14:30)
DX: K80.10 Calculus of gallbladder with chronic cholecystitis without obstruction (principal); I10 Essential (primary) hypertension
CPT/HCPCS: 47562; 88304; A9270; J0690; J1100; J1885; J2405; J2704; J3010; J7120